=== PATIENT | male | born 1980 | race Caucasian/White ===

== ENCOUNTER → 2019-05-15 13:35 | Outpatient (CLI) | payer MEDICAID, SELFPAY ==
[2019-05-15 14:47] LABS: Chloride 103 mmol/L (98-107)
[2019-05-15 14:48] LABS: Potassium 4.4 mmoL/L (3.5-5.1); Sodium 137 mmol/L (136-145)
[2019-05-15 14:50] LABS: Alanine Aminotransferase 130 U/L (12-78); Alkaline Phosphatase 180 U/L (38-126); Anion Gap 7.4 mEq/L (5-15); Aspartate Amino Transferase 118 U/L (17-59); Bilirubin,Total 0.7 mg/dl (0.2-1.3); Blood Urea Nitrogen 22 mg/dl (9-20); Carbon Dioxide 31 mmol/L (22.0-30.0); Estimated Glomerular Filt Rate 93 ml/min (>60); GFR (African American) 113 ML/MIN (>60)
[2019-05-15 14:51] LABS: Albumin Level 4.2 g/dl (3.5-5.0); Albumin/Globulin Ratio 1.4 (1.1-1.8); Calcium 9.9 mg/dl (8.4-10.2); Chol/HDL Ratio 3.7 (1-3.5); Cholesterol 205 mg/dl (140-200); Globulin 2.9 g/dL (1.3-3.2); Glucose 113 mg/dl (74-100); HDL Cholesterol 55 mg/dl (40-60); Total Protein,Serum 7.1 g/dl (6.3-8.2); Triglycerides 113 mg/dl (30-150); Uric Acid 5.9 mg/dl (3.5-8.5); VLDL Cholesterol 23 mg/dL (0-40)
[2019-05-15 15:03] LABS: Direct LDL Cholesterol 138.29 mg/dL (100-129)
[2019-05-15 15:07] LABS: T4 (Thyroxine) 10.8 ug/dl (5.53-11.0)
[2019-05-15 15:21] LABS: Thyroid Stimulating Hormone 3.02 uIU/mL (0.465-4.68)
[2019-05-15 15:53] LABS: Basophils # 0.1 K/mm3 (0-0.2); Basophils % 1.2 % (0.1-2.0); Eosinophils # 0.3 K/mm3 (0.0-0.4); Eosinophils % 6.6 % (0.1-12.0); Hematocrit 43.7 % (42.0-52.0); Hemoglobin 14.1 g/dL (14.1-18.0); Mean Corpuscular HGB Conc 32.3 g/dL (31.8-35.4); Mean Corpuscular Hemoglobin 29.9 pg (27.0-31.2); Mean Corpuscular Volume 92.5 fl (80-94); Mean Platelet Volume 12.2 fl (7.4-10.4); Monocytes # 0.3 K/mm3 (0.1-1.0); Monocytes % 8.5 % (1.7-9.3); Neutrophils # 2.3 K/mm3 (1.8-7.8); Neutrophils % 58.7 % (37.0-80.0); Platelet Count 87 K/mm3 (142-424); Red Blood Count 4.73 M/mm3 (4.60-6.20); Red Cell Distribution Width 13.4 % (11.5-17.5)
[2019-05-15 20:43] LABS: Amphetamine/Metha Screen,Urine Negative ng/ml (<1000); Barbiturates Screen,Urine Negative ng/ml (<200)
[2019-05-15 20:44] LABS: Benzodiazepines Screen,Urine Negative ng/ml (<200)
[2019-05-15 20:45] LABS: Cannabinoid Screen,Urine Positive ng/ml (<50); Cocaine Screen,Urine Negative ng/ml (<300)
[2019-05-15 20:46] LABS: Methadone Screen,Urine Negative ng/ml (<300)
[2019-05-15 20:47] LABS: Opiate Screen,Urine Negative ng/ml (<300); Phencyclidine Screen,Urine Negative ng/ml (<25)
[2019-05-17 07:09] LABS: Hep A Ab, IgM Negative (Negative); Hepatitis B Core Antibody IgM Negative (Negative); Hepatitis B Surface Antigen Negative (Negative)
[2019-05-17 13:10] LABS: Hepatitis C Antibody >11.0 s/co ratio (0.0-0.9)
[2019-05-17 13:11] LABS: Vitamin D 25 Hydroxy 14.7 ng/mL (30.0-100.0)
[2019-05-26 17:38] LABS: HCV Genotype Charge YES; Hepatitis C Genotype 1b (.)
== END ==
PROVIDERS: Physician Assistant; Visit Provider Emergency Medicine
DX: M54.16 Radiculopathy, lumbar region (principal); M25.571 Pain in right ankle and joints of right foot; R79.89 Other specified abnormal findings of blood chemistry; E55.9 Vitamin D deficiency, unspecified
CPT/HCPCS: 80053; 80061; 80074; 80305; 82652; 84436; 84443; 84550; 85025; 87522; 87902

== ENCOUNTER → 2019-05-17 09:12 | Outpatient (CLI) | payer MEDICAID, SELFPAY ==
--- NOTE | 2019-05-17 09:17 | XR_ITS ---
PROCEDURE: XR ANKLE WT BEARING RT MIN 3V CLINICAL INDICATION: pain COMPARISON: No exams were available for comparison FINDINGS: There is severe osteoarthritis at the tibiotalar and subtalar joints. There appears to be near complete loss of the cartilaginous joint space with bone on bone appearance of the tibia and talus. There is lateral subluxation of the talus in relation to the distal tibia. There is increased distance between the distal tibia and the fibula suggesting soft tissue laxity. Large degenerative cysts are seen in the distal tibia and fibula largest in distal tibia is approximately 2.4 centimeters. No acute fracture dislocation or destructive lesion is apparent. Minimal dorsal posterior calcaneal spurring is noted. There is soft tissue swelling over both malleoli greatest laterally. IMPRESSION: Severe osteo arthritic changes. Dictated by: Hugh Barrera 05/17/2019 11:16 Electronically signed by Hugh Barrera in [place] 05/17/2019 11:16
--- NOTE | 2019-05-17 09:17 | XR_ITS ---
PROCEDURE: XR ANKLE WT BEARING LT MIN 3V CLINICAL INDICATION: Pain COMPARISON: No exams were available for comparison FINDINGS: There is no acute fracture or dislocation. Mild osteoarthritis appears present at the tibiotalar joint with subchondral sclerosis of distal tibia and talus. The joint space is preserved. IMPRESSION: No acute findings. Mild tibiotalar osteoarthritis. Dictated by: Hugh Barrera 05/17/2019 10:01 Electronically signed by Hugh Barrera in [facility] 05/17/2019 10:01
== END ==
PROVIDERS: PCP Emergency Medicine; Visit Provider Podiatrist
DX: M25.579 Pain in unspecified ankle and joints of unspecified foot (principal)
CPT/HCPCS: 73610

== ENCOUNTER → 2019-08-24 15:20 | Outpatient (CLI) | payer MEDICAID, SELFPAY ==
[2019-08-24 16:04] LABS: INR 0.97 (0.9-1.1)
[2019-08-26 16:39] LABS: HIV Screen 4th Generation wRfx Non Reactive (Non Reactive)
== END ==
PROVIDERS: Visit Provider Physician Assistant
DX: B19.20 Unspecified viral hepatitis C without hepatic coma (principal); F19.11 Other psychoactive substance abuse, in remission; R79.89 Other specified abnormal findings of blood chemistry
CPT/HCPCS: 36415; 85610; 86703; G0432

== ENCOUNTER 2021-05-01 21:52 | Emergency (ER) | payer MEDICAID, SELFPAY ==
[2021-05-01 21:55] VITALS: BP 154/96; PULSE 88; RESP 20; TEMP 37.1; O2SAT 98; BMI 40.1
--- NOTE | 2021-05-01 22:04 | ECG_ITS ---
APPROVED REPORT Exam: Resting ECG HR:84 bpm ECG Measurements Heart Rate 84 AXES [place] 172 P 72 QRSd 106 QRS 87 QT 386 T 70 QTc 428 Conclusion SINUS RHYTHM NORMAL ECG UNCONFIRMED REPORT Electronically signed by : Ziggy Fritz MD 05/02/2021 12:26:57
[2021-05-01 22:19] VITALS: BMI 40.1
--- NOTE | 2021-05-01 22:19 | CT_ITS ---
PROCEDURE INFORMATION: Exam: CT Abdomen And Pelvis With Contrast Exam date and time: 05/01/2021 11:21 PM Age: 41 years old Clinical indication: Other: Cirrhosis of liver; Additional info: Liver problems cirrhosis TECHNIQUE: Imaging protocol: Computed tomography of the abdomen and pelvis with contrast. Radiation optimization: All CT scans at this facility use at least one of these dose optimization techniques: automated exposure control; mA and/or kV adjustment per patient size (includes targeted exams where dose is matched to clinical indication); or iterative reconstruction. Contrast material: ISOVUE; Contrast volume: 75 ml; Contrast route: IV; COMPARISON: SPLUMBWO CT lumbar spine wo con 10/12/2017 12:43 PM FINDINGS: Liver: Nodular hepatic border consistent with cirrhosis. Gallbladder and bile ducts: Diffuse gallbladder wall thickening without abnormal dilation. Pancreas: Fatty infiltration of the pancreas. Spleen: Splenomegaly. Adrenal glands: Normal. No mass. Kidneys and ureters: No hydronephrosis. Stomach and bowel: No obstruction. No mucosal thickening. Appendix: No evidence of appendicitis. Intraperitoneal space: No free air. No significant fluid collection. Vasculature: Dilated epigastric veins consistent with portal hypertension. Portal vein and splenic veins are enlarged consistent with portal hypertension. Lymph nodes: No pathologically enlarged lymph nodes. Urinary bladder: Unremarkable as visualized. Reproductive: Unremarkable as visualized. Bones/joints: Multilevel degenerative changes in the spine and right hip. Soft tissues: No acute findings. IMPRESSION: 1. Findings consistent with cirrhosis and portal hypertension and marked splenomegaly. 2. Diffuse gallbladder wall thickening which may be related to the portal hypertension, although right upper quadrant ultrasound could be performed if clinically indicated. No significant intra or extrahepatic biliary ductal dilation.
--- NOTE | 2021-05-01 22:19 | CT_ITS ---
PROCEDURE INFORMATION: Exam: CT Head Without Contrast Exam date and time: 05/01/2021 11:16 PM Age: 41 years old Clinical indication: Altered mental status/memory loss; Confusion or disorientation; Additional info: AMS TECHNIQUE: Imaging protocol: Computed tomography of the head without contrast. Radiation optimization: All CT scans at this facility use at least one of these dose optimization techniques: automated exposure control; mA and/or kV adjustment per patient size (includes targeted exams where dose is matched to clinical indication); or iterative reconstruction. COMPARISON: No relevant prior studies available. FINDINGS: Brain: Normal. No hemorrhage. Unremarkable white matter. No mass effect. Cerebral ventricles: No ventriculomegaly. Paranasal sinuses: Visualized sinuses are unremarkable. No fluid levels. Mastoid air cells: Visualized mastoid air cells are well aerated. Bones/joints: Unremarkable. No acute fracture. Soft tissues: Unremarkable. IMPRESSION: No acute intracranial abnormality.
[2021-05-01 22:30] VITALS: BP 148/100; PULSE 81; RESP 15; O2SAT 95
[2021-05-01 22:35] LABS: Alanine Aminotransferase 181 U/L (12-78); Albumin Level 4.3 g/dl (3.5-5.0); Albumin/Globulin Ratio 1.2 (1.1-1.8); Alkaline Phosphatase 197 U/L (38-126); Amylase 52 U/L (30-110); Anion Gap 11.8 mEq/L (5-15); Aspartate Amino Transferase 243 U/L (17-59); Blood Urea Nitrogen 18 mg/dl (9-20); Calcium 9.4 mg/dl (8.4-10.2); Carbon Dioxide 26 mmol/L (22.0-30.0); Chloride 105 mmol/L (98-107); Creatinine Clearance Estimated 288 mL/min (50-200); Estimated Glomerular Filt Rate 148 ml/min (>60); GFR (African American) 179 ML/MIN (>60); Globulin 3.6 g/dL (1.3-3.2); Glucose 92 mg/dl (74-100); Lipase 30 U/L (23-300); Potassium 3.8 mmoL/L (3.5-5.1); Sodium 139 mmol/L (136-145); Total Protein,Serum 7.9 g/dl (6.3-8.2)
[2021-05-01 22:41] LABS: C-Reactive Protein 4.9 mg/L (0-4)
[2021-05-01 22:45] LABS: Microscopic, Urine URINE MICROSCOPIC (MICROSCOPIC)
[2021-05-01 22:45] LABS: Ammonia 45 umol/L (9-30); Lactic Acid 1.8 mmol/L (0.7-2.1)
[2021-05-01 22:47] LABS: Basophils % 0.8 % (0.1-2.0); Eosinophils # 0.1 K/mm3 (0.0-0.4); Eosinophils % 2.7 % (0.1-12.0); Hematocrit 41.3 % (42.0-52.0); Hemoglobin 13.3 g/dL (14.1-18.0); Lymphocytes # 0.7 K/mm3 (0.7-4.5); Lymphocytes % 23.8 % (10-50); Mean Corpuscular HGB Conc 32.2 g/dL (31.8-35.4); Mean Corpuscular Hemoglobin 30.4 pg (27.0-31.2); Mean Corpuscular Volume 94.4 fl (80-94); Mean Platelet Volume 12.3 fl (7.4-10.4); Monocytes # 0.2 K/mm3 (0.1-1.0); Monocytes % 6.3 % (1.7-9.3); Neutrophils # 1.9 K/mm3 (1.8-7.8); Neutrophils % 66.3 % (37.0-80.0); Red Blood Count 4.38 M/mm3 (4.60-6.20); Red Cell Distribution Width 15.3 % (11.5-17.5); White Blood Count 2.9 K/mm3 (4.8-10.8)
[2021-05-01 22:50] LABS: Platelet Count 41 K/mm3 (142-424)
--- NOTE | 2021-05-01 22:50 | PC.NURSE ---
[place] [id number] [place] from [place] with Lab. notified. No new orders.
[2021-05-01 22:55] LABS: Procalcitonin 0.115 ng/mL (0.0-2.0)
[2021-05-01 22:57] LABS: Appearance,Urine CLEAR (Clear); Bilirubin,Urine Negative (Negative); Blood, Urine Negative (Negative); Color,Urine YELLOW (Yellow); Glucose,Urine (UA) Negative (Negative); Ketones,Urine Negative (Negative); Leukocyte Esterase,Urine TRACE (Negative); Nitrate,Urine Negative (Negative); PH,Urine 6.5 (5.0-8.5); Protein,Urine Negative (Negative); Specific Gravity, Urine <= 1.005 (1.005-1.030)
[2021-05-01 23:00] VITALS: BP 148/93; PULSE 83; RESP 16; O2SAT 94
[2021-05-01 23:00] LABS: Benzodiazepines Screen,Urine Negative ng/ml (<200); Squamous Epithelial Cell,Urine Occasional #/hpf (0-5)
--- NOTE | 2021-05-01 23:00 | HMH.EDWEAK ---
ED Disposition Clinical Impression: Hepatic encephalopathy, Portal hypertension, Splenomegaly, Thrombocytopenia Cirrhosis of liver Qualifiers: Hepatic cirrhosis type: unspecified hepatic cirrhosis Ascites presence: without ascites Qualified Code(s): K74.60 - Unspecified cirrhosis of liver Disposition: Home, Self-Care Condition on Discharge: Good Instructions: DI for Hepatic Encephalopathy Additional Instructions: use meds and see pcp next week Prescriptions: Lactulose [Lactulose 20gm/30ml Oral Soln] 20 gm PO BID #1200 ml Transmission Status: Pending to [id number] Referrals: Zi Hoffmann MD [Primary Care Provider] - - Critical Care Critical Care Time: No Attestation: On 05/01/21, the high probability of a clinically significant, sudden or life threatening deterioration of the following system(s) required my full and direct attention, intervention and personal management. The time I documented below is in addition to time spent performing reported procedures but includes the following listed in this critical care notation. Medical Decision Making - Medical Records Medical records reviewed: Yes: I reviewed the patient's medical records. - Tadeo Inquiry Pt receiving controlled substance: No Vital Signs: 05/01/21 21:55 Temperature 98.8 F Temperature Source Oral Pulse Rate [Right] 88 Respiratory Rate 20 Blood Pressure [Right Arm] 154/96 H Blood Pressure Mean [Right Arm] 115 Blood Pressure Source [Right Arm] Automatic Cuff 02 Sat by Pulse Oximetry 98 Oxygen Delivery Method Room Air - Lab Data Lab results reviewed: Yes: I reviewed the patient's lab results. Lab Results 05/01/21 22:10: WBC 2.9 L, RBC 4.38 L, Hgb 13.3 L, Hct 41.3 L, MCV 94.4 H, MCH 30.4, MCHC 32.2, RDW 15.3, Plt Count 41 L*, MPV 12.3 H, Neut % (Auto) 66.3, Lymph % (Auto) 23.8, [place] % (Auto) 6.3, Eos % (Auto) 2.7, Baso % (Auto) 0.8, Neut # (Auto) 1.9, Lymph # (Auto) 0.7, [place] # (Auto) 0.2, Eos # (Auto) 0.1, Baso # (Auto) 0.0, ESR 22 H 05/01/21 22:10: Sodium 139, Potassium 3.8, Chloride 105, Carbon Dioxide 26, Anion Gap 11.8, BUN 18, Creatinine 0.60 L, Estimated Creat Clear 288, Estimated GFR 148, Est GFR ( Amer) 179, Glucose 92, Calcium 9.4, Total Bilirubin 2.0 H, AST 243 H, ALT 181 H, Alkaline Phosphatase 197 H, C-Reactive Protein 4.9 H, Total Protein 7.9, Albumin 4.3, Globulin 3.6 H, Albumin/Globulin Ratio 1.2, Amylase 52, Lipase 30, Procalcitonin 0.115 05/01/21 22:10: Ammonia 45 H 05/01/21 22:10: Lactate 1.8 05/01/21 22:10: TSH 1.30, Thyroxine (T4) 14.2 H 05/01/21 22:40: Urine Color Yellow, Urine Appearance Clear, Urine pH 6.5, Ur Specific [place] <= 1.005, Urine Protein Negative, Urine Glucose (UA) Negative, Urine Ketones Negative, Urine Blood Negative, Urine Nitrate Negative, Urine Bilirubin Negative, Urine Urobilinogen 2.0, Ur Leukocyte Esterase Trace, Urine WBC 5-10, Ur Squamous Epith Cells Occasional 05/01/21 22:40: Urine Opiates Screen Negative, Urine Methadone Screen Negative, Ur Barbituates Screen Negative, Ur Phencyclidine Scrn Negative, Ur Amphetamines Screen Negative, U Benzodiazepines Scrn Negative, Urine Cocaine Screen Negative, U Marijuana (THC) Screen Positive H Result diagrams: 05/01/21 22:10 05/01/21 22:10 Orders (Tests/Meds): ED MEDICATIONS Generic Name Dose Route Start Last Admin Trade Name Freq PRN Reason Stop Dose Admin Sodium Chloride 1,000 mls @ 999 mls/hr 05/01/21 22:30 05/01/21 22:33 Sod Chlor 0.9% 1000ml Bag IV 05/01/21 23:30 999 mls/hr .Q1H1M SYLVIE Administration Lactulose 20 gm 05/02/21 09:00 05/02/21 00:20 Lactulose 20gm/30ml Udc PO 06/01/21 08:59 20 gm DAILY SYLVIE Administration Discontinued Medications Generic Name Dose Route Start Last Admin Trade Name Freq PRN Reason Stop Dose Admin Iopamidol 75 ml 05/01/21 23:32 05/01/21 23:33 Iopamidol-370 (76%);100ml Bottle IV 05/01/21 23:33 75 ml ONCE ONE Administration Sodium Chloride 10 ml 05/01/21
[2021-05-01 23:01] LABS: Amphetamine/Metha Screen,Urine Negative ng/ml (<1000); Barbiturates Screen,Urine Negative ng/ml (<200)
[2021-05-01 23:02] LABS: Cannabinoid Screen,Urine Positive ng/ml (<50); Cocaine Screen,Urine Negative ng/ml (<300)
[2021-05-01 23:03] LABS: Methadone Screen,Urine Negative ng/ml (<300)
[2021-05-01 23:03] LABS: T4 (Thyroxine) 14.2 ug/dl (5.53-11.0)
[2021-05-01 23:04] LABS: Opiate Screen,Urine Negative ng/ml (<300); Phencyclidine Screen,Urine Negative ng/ml (<25)
[2021-05-01 23:14] LABS: Erythrocyte Sedimentation Rate 22 mm/hr (0-15)
[2021-05-01 23:30] VITALS: BP 158/98; PULSE 79; RESP 19; O2SAT 95
--- NOTE | 2021-05-01 23:30 | PC.NURSE ---
back from CT
[2021-05-02] VITALS: BP 159/94; PULSE 82; RESP 20; O2SAT 96
[2021-05-02 00:30] VITALS: BP 151/92; PULSE 84; RESP 16; O2SAT 96
[2021-05-02 00:52] VITALS: BP 150/98; PULSE 76; RESP 20; TEMP 36.8; O2SAT 100
[2021-05-02 01:10] LABS: INR 1.07 (0.9-1.1)
== END 2021-05-02 01:08 | disposition home or self-care (01) ==
PROVIDERS: Emergency Provider Emergency Medicine; PCP Emergency Medicine
DX: K74.60 Unspecified cirrhosis of liver (principal); K72.90 Hepatic failure, unspecified without coma; D69.6 Thrombocytopenia, unspecified; R42 Dizziness and giddiness; R53.1 Weakness; R41.0 Disorientation, unspecified; I27.20 Pulmonary hypertension, unspecified; R16.1 Splenomegaly, not elsewhere classified; F17.210 Nicotine dependence, cigarettes, uncomplicated; Z79.51 Long term (current) use of inhaled steroids; Z79.899 Other long term (current) drug therapy
CPT/HCPCS: 70450; 74177; 80053; 80305; 81001; 82140; 82150; 83605; 83690; 84145; 84436; 84443; 85025; 85610; 85651; 86140; 87040; 87522; 93005; 96360; 96365; 99285; Q9967

== ENCOUNTER → 2022-05-27 10:20 | Outpatient (CLI) | payer MEDICAID, SELFPAY ==
[2022-05-27 15:14] LABS: Alanine Aminotransferase 124 U/L (12-78); Albumin Level 4.1 g/dl (3.5-5.0); Albumin/Globulin Ratio 1.2 (1.1-1.8); Alkaline Phosphatase 180 U/L (38-126); Anion Gap 7.8 mEq/L (5-15); Aspartate Amino Transferase 166 U/L (17-59); Blood Urea Nitrogen 11 mg/dl (9-20); Carbon Dioxide 23 mmol/L (22.0-30.0); Chloride 106 mmol/L (98-107); Estimated Glomerular Filt Rate 147 ml/min (>60); GFR (African American) 178 ML/MIN (>60); Globulin 3.4 g/dL (1.3-3.2); Glucose 106 mg/dl (74-100); Potassium 3.8 mmoL/L (3.5-5.1); Sodium 133 mmol/L (136-145); Total Protein,Serum 7.5 g/dl (6.3-8.2)
[2022-05-27 17:32] LABS: Basophils % 0.5 % (0.1-2.0); Eosinophils # 0.1 K/mm3 (0.0-0.4); Eosinophils % 3.5 % (0.1-12.0); Hemoglobin 13.6 g/dL (14.1-18.0); Lymphocytes # 0.9 K/mm3 (0.7-4.5); Lymphocytes % 25.8 % (10-50); Mean Corpuscular HGB Conc 33.2 g/dL (31.8-35.4); Mean Corpuscular Hemoglobin 31.5 pg (27.0-31.2); Mean Corpuscular Volume 94.9 fl (80-94); Mean Platelet Volume 14.2 fl (7.4-10.4); Monocytes # 0.4 K/mm3 (0.1-1.0); Monocytes % 10.1 % (1.7-9.3); Neutrophils # 2.1 K/mm3 (1.8-7.8); Neutrophils % 60.1 % (37.0-80.0); Platelet Count 58 K/mm3 (142-424); Red Blood Count 4.32 M/mm3 (4.60-6.20); Red Cell Distribution Width 14.6 % (11.5-17.5); White Blood Count 3.5 K/mm3 (4.8-10.8)
[2022-05-29 17:57] LABS: HIV Screen 4th Generation wRfx NON REACTIVE
[2022-05-29 17:58] LABS: Hep A Ab, Total NEGATIVE; Hep B Core Ab, Total NON REACTIVE; Hep B Surface Ab, Qual NEGATIVE; Hepatitis B Surface Antigen NEGATIVE; Hepatitis C Antibody REACTIVE
[2022-05-31 20:19] LABS: HCV Genotype Charge YES; Hepatitis C Genotype 1b (.)
[2022-06-02 04:09] LABS: ALT (SGPT) P5P 129 IU/L (0-55); Alpha 2-Macroglobulins, Qn 273 mg/dL (110-276); Apolipoprotein A-1 94 mg/dL (101-178); Bilirubin, Total 1.1 mg/dL (0.0-1.2); Fibrosis Score 0.88 (0.00-0.21); GGT 233 IU/L (0-65); Haptoglobin 36 mg/dL (23-355); Necroinflammat Activity Grade A3-Severe activity (.); Necroinflammat Activity Score 0.83 (0.00-0.17)
== END ==
PROVIDERS: PCP Nurse Practitioner Family; Visit Provider Nurse Practitioner Family
DX: K72.90 Hepatic failure, unspecified without coma (principal)
CPT/HCPCS: 80053; 81596; 85025; 86703; 86704; 86706; 86708; 87340; 87380; 87522; 87902; G0432

== ENCOUNTER 2022-08-23 03:21 | Emergency (ER) | payer MEDICAID, SELFPAY ==
[2022-08-23] VITALS (15 sets, daily range): BP systolic 117–165; BP diastolic 62–97; PULSE 70–110; RESP 13–21; TEMP 37.1; O2SAT 90–97; BMI 34.4
--- NOTE | 2022-08-23 03:21 | ECG_ITS ---
APPROVED REPORT Exam: Resting ECG HR:114 bpm ECG Measurements Heart Rate 114 AXES [place] 181 P 71 QRSd 96 QRS 100 QT 331 T 40 QTc 399 Conclusion SINUS TACHYCARDIA BORDERLINE RIGHT AXIS DEVIATION [QRS AXIS > 90] ABNORMAL RHYTHM ECG UNCONFIRMED REPORT Electronically signed by : Ziggy Fritz MD 08/23/2022 14:00:07
--- NOTE | 2022-08-23 03:25 | XR_ITS ---
PROCEDURE INFORMATION: Exam: XR Chest Exam date and time: 08/23/2022 3:33 AM Age: 42 years old Clinical indication: Shortness of breath; Additional info: Dyspnea TECHNIQUE: Imaging protocol: Radiologic exam of the chest. Views: 1 view. COMPARISON: CT ABDOMEN PELVIS W CON 05/01/2021 11:21 PM FINDINGS: Lungs: No acute findings or consolidation. Pleural spaces: No pleural effusion. No pneumothorax. Heart/Mediastinum: No acute findings or cardiomegaly. Bones/joints: No acute findings. Advanced degenerative changes in the bilateral glenohumeral joints. IMPRESSION: No acute cardiopulmonary findings.
[2022-08-23 03:36] LABS: Basophils % 0.8 % (0.1-2.0); Eosinophils # 0.1 K/mm3 (0.0-0.4); Hematocrit 41.3 % (42.0-52.0); Hemoglobin 13.2 g/dL (14.1-18.0); Lymphocytes # 0.6 K/mm3 (0.7-4.5); Lymphocytes % 32.8 % (10-50); Mean Corpuscular HGB Conc 31.9 g/dL (31.8-35.4); Mean Corpuscular Hemoglobin 31.8 pg (27.0-31.2); Mean Corpuscular Volume 99.8 fl (80-94); Mean Platelet Volume 11.1 fl (7.4-10.4); Monocytes # 0.1 K/mm3 (0.1-1.0); Neutrophils # 1.1 K/mm3 (1.8-7.8); Neutrophils % 54.4 % (37.0-80.0); Red Blood Count 4.14 M/mm3 (4.60-6.20); Red Cell Distribution Width 14.1 % (11.5-17.5)
[2022-08-23 03:40] LABS: Chloride 104 mmol/L (98-107); Sodium 140 mmol/L (136-145)
[2022-08-23 03:41] LABS: Potassium 3.8 mmoL/L (3.5-5.1)
[2022-08-23 03:43] LABS: Alanine Aminotransferase 104 U/L (12-78); Alkaline Phosphatase 307 U/L (38-126); Aspartate Amino Transferase 342 U/L (17-59); Bilirubin,Total 7.3 mg/dl (0.2-1.3); Blood Urea Nitrogen 4 mg/dl (9-20); Creatinine Clearance Estimated 210 mL/min (50-200); Estimated Glomerular Filt Rate 123 ml/min (>60); GFR (African American) 149 ML/MIN (>60)
[2022-08-23 03:44] LABS: Albumin Level 3.9 g/dl (3.5-5.0); Albumin/Globulin Ratio 0.9 (1.1-1.8); Ammonia 34 umol/L (9-30); Anion Gap 12.8 mEq/L (5-15); Calcium 8.7 mg/dl (8.4-10.2); Carbon Dioxide 27 mmol/L (22.0-30.0); Globulin 4.5 g/dL (1.3-3.2); Glucose 140 mg/dl (74-100); Total Protein,Serum 8.4 g/dl (6.3-8.2)
[2022-08-23 03:45] LABS: Ethyl Alcohol 173 mg/dl (0-10)
[2022-08-23 03:46] LABS: Acetaminophen < 10 ug/ml (10-30); Salicylate < 1.0 mg/dL (2.0-20.0)
[2022-08-23 03:47] LABS: Magnesium 1.7 mg/dl (1.6-2.3)
[2022-08-23 03:53] LABS: Platelet Count 22 K/mm3 (142-424)
--- NOTE | 2022-08-23 03:57 | PC.NURSE ---
Attending notified that patient meets SIRS for RR, HR, and WBC of 2.0 and Organ Dysfunction for Lactic 2.0, Total Bili 7.3, and Platelets 22. Discussed broad spectrum abx; no new orders at this time
--- NOTE | 2022-08-23 04:01 | CT_ITS ---
PROCEDURE INFORMATION: Exam: CTA Chest With Contrast Exam date and time: 08/23/2022 4:24 AM Age: 42 years old Clinical indication: Dyspnea TECHNIQUE: Imaging protocol: Computed tomographic angiography of the chest with contrast. Exam focused on the arteries. 3D rendering (Not supervised by radiologist): MIP and/or 3D reconstructed images were created by the technologist. Radiation optimization: All CT scans at this facility use at least one of these dose optimization techniques: automated exposure control; mA and/or kV adjustment per patient size (includes targeted exams where dose is matched to clinical indication); or iterative reconstruction. Contrast material: ISOVUE; Contrast volume: 70 ml; Contrast route: INTRAVENOUS (IV); REPORTING DATA: Count of CT and Cardiac NM exams in prior 12 months: This patient has received 0 known CTs and 0 known cardiac nuclear medicine studies in the 12 months prior to the current study. COMPARISON: CR XR CHEST PORTABLE 08/23/2022 3:33 AM FINDINGS: Pulmonary arteries: No pulmonary emboli. Aorta: No aortic aneurysm. No aortic dissection. Lungs: No acute consolidation or airspace disease. Pleural spaces: No pneumothorax. No pleural effusion. Heart: No cardiomegaly. No pericardial effusion. Lymph nodes: Calcified hilar and mediastinal lymph nodes. Bones/joints: No acute osseous findings. Advanced degenerative changes in the bilateral glenohumeral joints. Soft tissues: No acute findings. IMPRESSION: No acute findings in the chest.
--- NOTE | 2022-08-23 04:01 | CT_ITS ---
PROCEDURE INFORMATION: Exam: CT Abdomen And Pelvis With Contrast Exam date and time: 08/23/2022 4:24 AM Age: 42 years old Clinical indication: Bloating; Additional info: Dyspnea TECHNIQUE: Imaging protocol: Computed tomography of the abdomen and pelvis with contrast. Radiation optimization: All CT scans at this facility use at least one of these dose optimization techniques: automated exposure control; mA and/or kV adjustment per patient size (includes targeted exams where dose is matched to clinical indication); or iterative reconstruction. Contrast material: ISOVUE; Contrast volume: 70 ml; Contrast route: IV; REPORTING DATA: Count of CT and Cardiac NM exams in prior 12 months: This patient has received 0 known CTs and 0 known cardiac nuclear medicine studies in the 12 months prior to the current study. COMPARISON: CT ABDOMEN PELVIS W CON 05/01/2021 11:21 PM FINDINGS: Liver: Nodular hepatic border consistent with cirrhosis. Gallbladder and bile ducts: Diffuse gallbladder wall thickening. Pancreas: Atrophic pancreas. Spleen: Splenomegaly. Adrenal glands: Normal. No mass. Kidneys and ureters: No hydronephrosis. Stomach and bowel: No obstruction. No mucosal thickening. Appendix: No evidence of appendicitis. Intraperitoneal space: Diffuse mesenteric edema. Vasculature: Multiple epigastric varices consistent with portal hypertension. Lymph nodes: No pathologically enlarged lymph nodes. Urinary bladder: Unremarkable as visualized. Reproductive: Unremarkable as visualized. Bones/joints: No acute fracture. Soft tissues: There is a small uncomplicated fat-containing umbilical hernia. IMPRESSION: 1. Cirrhosis with portal hypertension. 2. Diffuse mesenteric edema. 3. Splenomegaly. 4. Diffuse gallbladder wall thickening may be related to portal hypertension or hypoalbuminemia although other inflammatory causes are not excluded.
[2022-08-23 04:03] LABS: INR 1.21 (0.9-1.1); Prothrombin Time 12.9 seconds (10.1-12.5)
[2022-08-23 04:15] LABS: NT Pro Brain Natriuretic Pep. 120 pg/mL (0-125); Troponin I < 0.01 ng/ml (0.00-0.034)
--- NOTE | 2022-08-23 04:16 | HMH.EDSOB ---
Discharge Plan Disposition Patient Disposition: Xfer Short-Term Hosp Chief Complaint: Shortness of Breath/Dyspnea Prescriptions Prescriptions: No Action multivitamin Tablet 1 tab PO DAILY gabapentin 600 mg tablet 600 mg PO TID famotidine 20 mg tablet 20 mg PO DAILY buprenorphine-naloxone 8-2 mg tablet, sublingual 2 tab SUBLINGUAL DAILY diclofenac sodium 1 % gel 1 g TOPICAL BIDP PRN (Reason: Arthritis) Referrals Follow up/Referrals: Zi Hoffmann MD [Primary Care Provider] - See instructions Clinical Impressions Clinical Impression: Thrombocytopenia, Tobacco use, Hepatitis C, Cirrhosis, Liver disease, Alcohol abuse, Acute hepatic encephalopathy, Cellulitis, Gastric varices Discharge ED Provider: Tahira (ED)Zi Resp/SOB HPI General Chief Complaint: Shortness of Breath/Dyspnea Stated Complaint: Chest pain Time Seen by Provider: 08/23/22 04:00 Mode of Arrival: Wheelchair Source of Information: Patient, Significant Other and Medical Record Limitations: No Limitations Description of Symptoms (Recalled from ER Triage Doc. by RN): 42 M presents from home c/o worsening dyspnea, pounding in his chest, and swelling to his RLE from his mid-calf down. Patient describes increased anxiety r/t the recent of his mother. He is tearful during triage. He states he has been a daily drinker for sometime. Typically drinking 12-24 beers everyday. His last drink being 3-4 hours ago. He denies SI/HI or substance abuse. He is a 2 ppd smoker. History of Present Illness has had inc hr and feeling of sob over the last 24 hrs - using etoh despite known liver dis and hep c - MD Complaint: shortness of breath Onset (ago): day(s) Severity: moderate Known history of: other (liver disease) Related Data Home oxygen amount: none Home Medications Medication Instructions Recorded Confirmed buprenorphine 8 mg-naloxone 2 mg 2 tab sublingual DAILY Chronic 08/23/22 08/23/22 sublingual tablet opioid abuse diclofenac sodium 1 % topical gel 1 g topical BIDP PRN Arthritis 08/23/22 08/23/22 famotidine 20 mg tablet 20 mg PO DAILY Acid Reflux 08/23/22 08/23/22 gabapentin 600 mg tablet 600 mg PO TID Neuropathy 08/23/22 08/23/22 multivitamin 1 tab PO DAILY Supplement 08/23/22 08/23/22 Allergies Allergy/AdvReac Type Severity Reaction Status Date / Time No Known Allergies Allergy Verified 05/27/22 09:51 Well's Criteria PE Score Clinical signs/symptoms of DVT: No PE is #1 diagnosis or equally likely: Yes Heart rate is > 100: Yes Immobile at least 3 days, or surgery in past 4 wks: No Previously, obj. diagnosed PE or DVT: No Hemoptysis: No Malignancy w/Rx within 6mo, or palliative: No PE Score: 4 Risk of Pulmonary Embolism by score: >3 pts=Hi Risk (78%) [facility] Disclaimer: The information contained in this section may have been updated after the patient was seen, as this information can be updated by other users. Medical History (Updated 08/23/22 @ 07:37 by Zi Hoffmann (JOSE ANTONIO)MD) Depression, unspecified Gastro-esophageal reflux disease without esophagitis Hepatic failure, unspecified without coma Hepatic fibrosis, unspecified Hepatitis C Hepatitis C associated neuropathy No history of major surgery within 1 month Portal hypertension Radiculopathy, lumbar region Splenomegaly, not elsewhere classified Thrombocytopenia, unspecified Family History (Updated 08/23/22 @ 03:38 by Edgar Kingston RN) Other No significant family history Social History Smoking Status: Current every day smoker alcohol intake: current substance use type: former substance user, heroin and opiates current occupational status: employed Travel in the last 8 weeks: None household members: family housing: house ROS Obtained: Yes All systems reviewed & no additional complaints except as documented Physical Exam General General appearance:
--- NOTE | 2022-08-23 04:17 | PC.NURSE ---
Patient transported to CT
[2022-08-23 04:19] LABS: Procalcitonin 0.136 ng/mL (0.0-2.0)
[2022-08-23 04:21] LABS: T4 (Thyroxine) 8.8 ug/dl (5.53-11.0)
[2022-08-23 04:23] LABS: Lipase 204 U/L (23-300)
--- NOTE | 2022-08-23 04:32 | PC.NURSE ---
Patient back from CT
[2022-08-23 04:34] LABS: Thyroid Stimulating Hormone 1.37 uIU/mL (0.465-4.68)
--- NOTE | 2022-08-23 04:52 | PC.NURSE ---
Patient assisted to bathroom for UA. Assisted back to bed and requested something for anxiety. Attending notified. No new orders
[2022-08-23 04:57] LABS: Microscopic, Urine URINE MICROSCOPIC (MICROSCOPIC)
[2022-08-23 05:01] LABS: Appearance,Urine CLEAR (Clear); Blood, Urine Negative (Negative); Color,Urine DK YELLOW (Yellow); Glucose,Urine (UA) Negative (Negative); Ketones,Urine Negative (Negative); Leukocyte Esterase,Urine Negative (Negative); Nitrate,Urine Negative (Negative); Protein,Urine TRACE (Negative); Specific Gravity, Urine 1.015 (1.005-1.030)
[2022-08-23 05:12] LABS: Amphetamine/Metha Screen,Urine Negative ng/ml (<1000)
[2022-08-23 05:13] LABS: Barbiturates Screen,Urine Negative ng/ml (<200); Benzodiazepines Screen,Urine Negative ng/ml (<200)
[2022-08-23 05:14] LABS: Cannabinoid Screen,Urine Positive ng/ml (<50)
[2022-08-23 05:15] LABS: Cocaine Screen,Urine Negative ng/ml (<300); Methadone Screen,Urine Negative ng/ml (<300)
[2022-08-23 05:16] LABS: Opiate Screen,Urine Negative ng/ml (<300); Phencyclidine Screen,Urine Negative ng/ml (<25)
[2022-08-23 05:18] LABS: Bilirubin,Urine 2+ (Negative); WBC,Urine Occasional #/hpf (0-3)
--- NOTE | 2022-08-23 05:30 | PC.NURSE ---
Called RAD to have CT power-shared to [facility]
--- NOTE | 2022-08-23 05:33 | PC.NURSE ---
contacted [facility] for possible transfer
--- NOTE | 2022-08-23 05:46 | PC.NURSE ---
Dr. Hoffmann s/w [facility]. Ramsey with [facility]
--- NOTE | 2022-08-23 05:50 | PC.NURSE ---
Dr. Hoffmann speaking with Dr. Kruse at [place]
--- NOTE | 2022-08-23 05:52 | PC.NURSE ---
Dr. Sharad Kruse at [place] advised he would give a call back in 1 hour
--- NOTE | 2022-08-23 06:02 | PC.NURSE ---
Spoke with [facility]. Advised they would call hospitalist and call back.
--- NOTE | 2022-08-23 06:08 | PC.NURSE ---
Dr. Hoffmann speaking with Dr. Meneses, hospitalist at [facility]
--- NOTE | 2022-08-23 06:08 | PC.NURSE ---
[facility] advised they were on a pending admit list
--- NOTE | 2022-08-23 06:15 | PC.NURSE ---
Pt accepted to [facility] by Dr. Meneses. Face sheet faxed to [phone]
--- NOTE | 2022-08-23 06:33 | PC.NURSE ---
Patient had episode of projectile vomiting. Scant bright red blood noted throughout emesis bag. Attending notified and verbal order for 40mg IVP Protonix with another 4mg of IVP Zofran. Patient no longer vomiting at this time
--- NOTE | 2022-08-23 06:56 | PC.NURSE ---
Attending notified that patient's CIWA score is now 20. His last drink was approximately 2315 after clarifying his time frame. No new orders
[2022-08-23 07:00] LABS: Troponin I < 0.01 ng/ml (0.00-0.034)
--- NOTE | 2022-08-23 07:02 | PC.NURSE ---
Dr. Hoffmann s/w Dr. Ring
--- NOTE | 2022-08-23 07:08 | PC.NURSE ---
[facility] called back still unable to contact Dr Kruse
--- NOTE | 2022-08-23 07:40 | PC.NURSE ---
Pt c/o pain in his upper back and up into his neck and posterior head, pt reports pain has been persistent t/o ER visit but is worsening. Notified ER MD, no new orders obtained.
--- NOTE | 2022-08-23 07:44 | PC.NURSE ---
[facility]a called back we advised them we were sending pt to [facility]
--- NOTE | 2022-08-23 08:00 | PC.NURSE ---
rounded on pt, pt reports cramping feeling in upper back/neck area. Pt requesting a muscle cramping medicine , notified ER MD, verbal order for Lidocaine patch obtained.
--- NOTE | 2022-08-23 09:07 | PC.NURSE ---
placed call to [facility] for update on bed placement, they have nothing available at this time they will call noon or after for another update
--- NOTE | 2022-08-23 09:15 | PC.NURSE ---
cliff score 20, aware, new orders placed on mar
--- NOTE | 2022-08-23 09:46 | PC.NURSE ---
spoke with [facility], pt assigned to unit 3A on 3rd floor at [facility].
--- NOTE | 2022-08-23 09:57 | PC.NURSE ---
attempted to call report to [facility], requested we call back they have not assigned to pt to a nurse yet.
--- NOTE | 2022-08-23 10:16 | PC.NURSE ---
attempted to call report to [facility] again at this time, spoke with raghu garcia states she will call be back to get report in room with another pt.
--- NOTE | 2022-08-23 10:20 | PC.NURSE ---
pt sleeping well, is arousable to verbal stimuli but drowsy and falls back asleep. luisito bed rails up, family at BS, call wilson in reach
--- NOTE | 2022-08-23 10:45 | PC.NURSE ---
report called to jose beard rn at [facility] at this time.
--- NOTE | 2022-08-23 10:46 | PC.NURSE ---
notified em[facility] of transfer to [facility]
--- NOTE | 2022-08-23 11:11 | PC.NURSE ---
report given to [facility] at this time pt arousable but is drowsy, pt verbalized understanding that ems was here to transport to [facility]
== END 2022-08-23 11:24 | disposition short-term general hospital (02) ==
PROVIDERS: Emergency Provider Emergency Medicine; PCP Emergency Medicine
DX: K76.82 Hepatic encephalopathy (principal); D69.6 Thrombocytopenia, unspecified; K74.60 Unspecified cirrhosis of liver; I86.4 Gastric varices; R07.9 Chest pain, unspecified; K76.6 Portal hypertension; K21.9 Gastro-esophageal reflux disease without esophagitis; R00.0 Tachycardia, unspecified; F17.200 Nicotine dependence, unspecified, uncomplicated
CPT/HCPCS: 71045; 71275; 74177; 80053; 80305; 80329; 81001; 82140; 83605; 83690; 83735; 83880; 84145; 84436; 84443; 84484; 85025; 85610; 85730; 87040; 93005; 96361; 96374; 96375; 96376; 99285; J0696; J2405; Q9967